=== PATIENT | female | born 1935 | race Caucasian/White ===

== ENCOUNTER 2023-10-02 14:03 | Inpatient (IN) | payer BC, MEDICAID ==
[~2023-10-02] VITALS: Ht 162.6 cm; Wt 60.5 kg
[~2023-10-02 14:03] MED LIST: ASPI-611 PO; COLC0.6T72 PO; NOR5T PO; OLME20TA69 PO; TRAM50TA2 PO
[2023-10-02 14:40] LABS: BASOPHILS # (AUTO) 0.1 X10'3 (0-0.2); BASOPHILS % (AUTO) 0.6 % (0-1); EOSINOPHILS # (AUTO) 0.1 X10'3 (0-0.9); EOSINOPHILS % (AUTO) 0.8 % (0-6); HEMATOCRIT 39.5 % (35.0-45.0); HEMOGLOBIN 13.2 g/dl (12.0-16.0); LYMPHOCYTES # (AUTO) 1.3 X10'3 (1.1-4.8); LYMPHOCYTES % (AUTO) 13.1 % (21-51); MEAN CORPUSCULAR HEMOGLOBIN 32.4 PG (27.0-31.0); MEAN CORPUSCULAR HGB CONC 33.3 g/dL (33.0-36.5); MEAN PLATELET VOLUME 9.2 FL (7.4-10.4); MONOCYTES # (AUTO) 0.7 X10'3 (0-0.9); MONOCYTES % (AUTO) 7.7 % (2-12); NEUTROPHILS # (AUTO) 7.5 X10'3 (1.8-7.7); NEUTROPHILS % (AUTO) 77.8 % (42-75); PLATELET COUNT 175 X10'3 (140-440); RED BLOOD COUNT 4.07 X10'6 (4.20-5.60); RED CELL DISTRIBUTION WIDTH 12.9 % (11.5-14.5); WHITE BLOOD COUNT 9.6 X10'3 (4.5-11.0)
[2023-10-02 14:50] LABS: APTT 29 SECONDS (22-32); PROTHROMBIN TIME 10.6 SECONDS (9.0-12.0)
[2023-10-02 15:38] LABS: ALANINE AMINOTRANSFERASE 19 U/L (12-78); ALBUMIN 3.4 G/DL (3.4-5.0); ALBUMIN/GLOBULIN RATIO 0.9 (1.1-1.5); ALKALINE PHOSPHATASE 81 IU/L (46-116); ANION GAP 10 (8-16); ASPARTATE AMINO TRANSFERASE 23 U/L (10-37); BILIRUBIN,TOTAL 0.7 MG/DL (0.1-1.0); BLOOD UREA NITROGEN 34 MG/DL (7-18); BUN/CREATININE RATIO 28.1 (10.0-20.0); CALCIUM 9.1 MG/DL (8.5-10.1); CHLORIDE 104 MMOL/L (99-107); CREATININE 1.21 MG/DL (0.40-0.90); GLUCOSE 120 MG/DL (70-104); SODIUM 141 MMOL/L (135-145); TOTAL CARBON DIOXIDE 26.9 MMOL/L (24-32); TOTAL PROTEIN 7.1 G/DL (6.4-8.2); eCRCL 28 ML/MIN; eGFR 42 ML/MIN
[2023-10-02 15:41] LABS: POTASSIUM 3.5 MMOL/L (3.5-5.1)
[2023-10-02] MEDS: ondansetron/PF 4mg/2ml inj IV ONE (16:24)
[2023-10-02] MEDS: morphine 4 MG/ML inj SYRINge IV ONE (16:24)
[2023-10-02] MEDS: morphine 2 MG/ML inj. syringe IV ONE ×2 (16:37→16:56)
[2023-10-02] MEDS ORDERED: potassium Cl 20 mEq SR tablet PO PRN ×2 (17:35)
[2023-10-02] MEDS ORDERED: magnesium Cl slow-release 64mg tablet PO PRN (17:35)
[2023-10-02] MEDS ORDERED: ondansetron/PF 4mg/2ml inj IV PRN (17:35)
[2023-10-02] MEDS ORDERED: magnesium hydroxide 30ml (MOM) UD suspension PO PRN (17:35)
[2023-10-02] MEDS ORDERED: morphine 2 MG/ML inj. syringe IV PRN (17:35)
[2023-10-02] MEDS ORDERED: acetaminophen 325mg tablet PO PRN (17:35)
[2023-10-02] MEDS ORDERED: mag hydrox/Alum hydrox/simeth 30ml oral suspension PO PRN (17:35)
[2023-10-02] MEDS ORDERED: magnesium 2GM in 50ml NS 50 ML IV PRN (17:35)
[2023-10-02] MEDS ORDERED: magnesium 4gm in 100ml NS 100 ML IV PRN (17:35)
[2023-10-02] MEDS: HYDROcodone/acetaminophen 10/325mg tab PO PRN (17:53)
[2023-10-02] MEDS: LORazepam 2 mg/ml vial IV ONE (18:05)
[2023-10-02] MEDS: HYDROmorphone 1 mg/ml syringe IV ONE (18:33)
[2023-10-02] MEDS: K and/or MAG REPLACEMENT MC SCH (20:00)
[2023-10-02] MEDS: normal saline 1000ml 1,000 ML IV SCH (20:45)
[2023-10-02] MEDS: amLODIPine 5mg tablet PO ONE (22:25)
[2023-10-02] MEDS: HYDROcodone/acetaminophen 5mg/325mg tablet PO PRN (22:26)
[2023-10-02] MEDS: HYDROmorphone 1 mg/ml syringe IV SCH (22:45)
[2023-10-03 00:15] VITALS: BP 200/80; PULSE 80; RESP 18; TEMP 98.1; O2SAT 95
[2023-10-03] MEDS: morphine 2 MG/ML inj. syringe IV PRN (00:30)
[2023-10-03] MEDS: heparin, porcine 5000 units/ml vial SQ SCH (02:24)
[2023-10-03 07:00] VITALS: BP 144/54; PULSE 65; RESP 16; TEMP 98.1; O2SAT 94
[2023-10-03 08:06] LABS: BASOPHILS # (AUTO) 0.1 X10'3 (0-0.2); BASOPHILS % (AUTO) 0.6 % (0-1); EOSINOPHILS # (AUTO) 0.2 X10'3 (0-0.9); EOSINOPHILS % (AUTO) 1.7 % (0-6); HEMATOCRIT 36.2 % (35.0-45.0); HEMOGLOBIN 12.1 g/dl (12.0-16.0); LYMPHOCYTES # (AUTO) 1.1 X10'3 (1.1-4.8); LYMPHOCYTES % (AUTO) 9.4 % (21-51); MEAN CORPUSCULAR HEMOGLOBIN 32.2 PG (27.0-31.0); MEAN CORPUSCULAR HGB CONC 33.3 g/dL (33.0-36.5); MEAN CORPUSCULAR VOLUME 96.6 FL (78-98); MEAN PLATELET VOLUME 9.5 FL (7.4-10.4); MONOCYTES % (AUTO) 8.1 % (2-12); NEUTROPHILS # (AUTO) 9.5 X10'3 (1.8-7.7); NEUTROPHILS % (AUTO) 80.2 % (42-75); PLATELET COUNT 168 X10'3 (140-440); RED BLOOD COUNT 3.75 X10'6 (4.20-5.60); RED CELL DISTRIBUTION WIDTH 12.5 % (11.5-14.5); WHITE BLOOD COUNT 11.8 X10'3 (4.5-11.0)
[2023-10-03 08:29] LABS: ANION GAP 8 (8-16); BLOOD UREA NITROGEN 26 MG/DL (7-18); BUN/CREATININE RATIO 23.2 (10.0-20.0); CALCIUM 8.8 MG/DL (8.5-10.1); CHLORIDE 106 MMOL/L (99-107); CREATININE 1.12 MG/DL (0.40-0.90); GLUCOSE 106 MG/DL (70-104); MAGNESIUM 1.8 MG/DL (1.5-2.4); POTASSIUM 3.4 MMOL/L (3.5-5.1); SODIUM 142 MMOL/L (135-145); TOTAL CARBON DIOXIDE 27.9 MMOL/L (24-32); eCRCL 30 ML/MIN; eGFR 46 ML/MIN
[2023-10-03 10:00] VITALS: BP 202/72; PULSE 68; RESP 26; TEMP 99.2; O2SAT 2
[2023-10-03] MEDS ORDERED: HYDROmorphone 1 mg/ml syringe IV PRN (10:20)
[2023-10-03] MEDS: dextrose 5%-normal saline 1,000 ML IV SCH (11:05)
[2023-10-03] MEDS: LORazepam 2 mg/ml vial IV ONE (11:17)
[2023-10-03] MEDS: potassium Cl 40MEQ/1/2NS 520ml 520 ML IV PRN (14:38)
[2023-10-03] MEDS: HYDROmorphone 1 mg/ml syringe IV PRN (16:30)
[2023-10-03 16:43] VITALS: BP 136/58; PULSE 76; O2SAT 96
[2023-10-03 18:00] VITALS: BP 144/54; PULSE 65; RESP 16; TEMP 98.1; O2SAT 94
[2023-10-03] MEDS: colchicine 0.6mg tablet PO SCH (19:33)
[2023-10-03] MEDS: losartan 50mg tablet PO SCH (21:05)
[2023-10-03 22:00] VITALS: BP 157/70; PULSE 68; RESP 15; TEMP 98.5; O2SAT 96
[2023-10-04] VITALS (20 sets, daily range): BP systolic 110–164; BP diastolic 36–83; PULSE 51–86; RESP 12–18; TEMP 97.9–99.7; O2SAT 92–99
[2023-10-04 06:55] LABS: BASOPHILS % (AUTO) 0.2 % (0-1); EOSINOPHILS % (AUTO) 0.4 % (0-6); HEMATOCRIT 30.8 % (35.0-45.0); HEMOGLOBIN 10.3 g/dl (12.0-16.0); LYMPHOCYTES # (AUTO) 0.9 X10'3 (1.1-4.8); MEAN CORPUSCULAR HEMOGLOBIN 32.4 PG (27.0-31.0); MEAN CORPUSCULAR HGB CONC 33.4 g/dL (33.0-36.5); MEAN PLATELET VOLUME 9.3 FL (7.4-10.4); NEUTROPHILS # (AUTO) 8.8 X10'3 (1.8-7.7); NEUTROPHILS % (AUTO) 82.4 % (42-75); PLATELET COUNT 126 X10'3 (140-440); RED BLOOD COUNT 3.17 X10'6 (4.20-5.60); RED CELL DISTRIBUTION WIDTH 12.4 % (11.5-14.5); WHITE BLOOD COUNT 10.7 X10'3 (4.5-11.0)
[2023-10-04 07:13] LABS: ALBUMIN 2.3 G/DL (3.4-5.0); ANION GAP 6 (8-16); BLOOD UREA NITROGEN 22 MG/DL (7-18); BUN/CREATININE RATIO 18.5 (10.0-20.0); CALCIUM 8.1 MG/DL (8.5-10.1); CHLORIDE 111 MMOL/L (99-107); CREATININE 1.19 MG/DL (0.40-0.90); GLUCOSE 204 MG/DL (70-104); MAGNESIUM 1.6 MG/DL (1.5-2.4); POTASSIUM 3.3 MMOL/L (3.5-5.1); SODIUM 143 MMOL/L (135-145); TOTAL CARBON DIOXIDE 26.5 MMOL/L (24-32); eCRCL 28 ML/MIN; eGFR 43 ML/MIN
[2023-10-04] MEDS: amLODIPine 5mg tablet PO SCH (07:52)
[2023-10-04] MEDS ORDERED: vancomycin 1,000mg inj ONE ×2 (12:02→16:04)
[2023-10-04] MEDS ORDERED: propofol inj 20 ML IV ONE (12:15)
[2023-10-04] MEDS ORDERED: dexamethasone sod phosphate 4mg/ml inj. ONE ×2 (12:15→15:21)
[2023-10-04] MEDS ORDERED: LIDOcaine 2% (20mg/ml) 5ml vial ONE (12:15)
[2023-10-04] MEDS ORDERED: ondansetron/PF 4mg/2ml inj ONE (12:15)
[2023-10-04] MEDS: morphine 2 MG/ML inj. syringe IV PRN (14:45)
[2023-10-04] MEDS ORDERED: sevoflurane 250ml liquid IH ONE (15:07)
[2023-10-04] MEDS ORDERED: fentaNYL/PF 50MCG/1 ML 2ML syringe ONE ×2 (15:08→15:47)
[2023-10-04] MEDS ORDERED: ceFAZolin 1000mg inj ONE (15:23)
[2023-10-04] MEDS ORDERED: tranexamic acid 100mg/ml inj. ONE (15:25)
[2023-10-04] MEDS ORDERED: fentaNYL/PF 50MCG/1 ML 2ML syringe IV PRN ×2 (15:35)
[2023-10-04] MEDS ORDERED: ondansetron/PF 4mg/2ml inj IV PRN (15:35)
[2023-10-04] MEDS ORDERED: labetalol 20mg/4ml (5mg/ml) syringe IV PRN (15:35)
[2023-10-04] MEDS ORDERED: morphine 4 MG/ML inj SYRINge IV PRN (15:35)
[2023-10-04] MEDS: ringers solution, lacted 1,000 ML IV SCH (15:35)
[2023-10-04] MEDS ORDERED: hydrALAZINE 20mg/ml inj. IV PRN (15:35)
[2023-10-04] MEDS ORDERED: morphine 2 MG/ML inj. syringe IV PRN (15:35)
[2023-10-04] MEDS: cefazolin 2gm/D5W 100mL 100 ML IV SCH (23:36)
[2023-10-05 02:00] VITALS: BP 139/63; PULSE 56; RESP 17; TEMP 97.9; O2SAT 99
[2023-10-05 06:00] VITALS: BP 136/50; PULSE 57; RESP 16; TEMP 98.2; O2SAT 98
[2023-10-05 06:49] LABS: BASOPHILS % (AUTO) 0.1 % (0-1); EOSINOPHILS % (AUTO) 0 % (0-6); HEMATOCRIT 28.9 % (35.0-45.0); HEMOGLOBIN 9.9 g/dl (12.0-16.0); LYMPHOCYTES # (AUTO) 0.9 X10'3 (1.1-4.8); LYMPHOCYTES % (AUTO) 7.8 % (21-51); MEAN CORPUSCULAR HGB CONC 34.2 g/dL (33.0-36.5); MEAN CORPUSCULAR VOLUME 96.7 FL (78-98); MEAN PLATELET VOLUME 9.6 FL (7.4-10.4); MONOCYTES # (AUTO) 1.1 X10'3 (0-0.9); MONOCYTES % (AUTO) 9.5 % (2-12); NEUTROPHILS # (AUTO) 9.2 X10'3 (1.8-7.7); NEUTROPHILS % (AUTO) 82.6 % (42-75); PLATELET COUNT 120 X10'3 (140-440); RED BLOOD COUNT 2.98 X10'6 (4.20-5.60); RED CELL DISTRIBUTION WIDTH 12.3 % (11.5-14.5); WHITE BLOOD COUNT 11.2 X10'3 (4.5-11.0)
[2023-10-05 07:00] LABS: ALBUMIN 2.2 G/DL (3.4-5.0); ANION GAP 9 (8-16); BLOOD UREA NITROGEN 26 MG/DL (7-18); BUN/CREATININE RATIO 20.8 (10.0-20.0); CALCIUM 8.5 MG/DL (8.5-10.1); CHLORIDE 111 MMOL/L (99-107); CREATININE 1.25 MG/DL (0.40-0.90); GLUCOSE 216 MG/DL (70-104); MAGNESIUM 1.6 MG/DL (1.5-2.4); POTASSIUM 3.9 MMOL/L (3.5-5.1); SODIUM 143 MMOL/L (135-145); TOTAL CARBON DIOXIDE 23.2 MMOL/L (24-32); eCRCL 27 ML/MIN; eGFR 40 ML/MIN
[2023-10-05] MEDS: aspirin 81mg, enteric-coated 1 TAB TABLET.DR PO SCH (07:48)
[2023-10-05 10:32] VITALS: BP 149/71; PULSE 63; RESP 18; TEMP 98.5; O2SAT 98
[2023-10-05] MEDS: calcium carbonate 500mg tablet PO SCH (17:52)
[2023-10-05 18:00] VITALS: BP 151/56; PULSE 62; RESP 17; TEMP 98.9; O2SAT 97
[2023-10-05 22:00] VITALS: BP 142/51; PULSE 60; RESP 22; TEMP 98.4; O2SAT 99
[2023-10-06 06:00] VITALS: BP 159/75; PULSE 59; RESP 20; TEMP 98; O2SAT 99
[2023-10-06] MEDS: cholecalciferol (vitamin D3) 1,000 unit (25mcg) tablet PO SCH (07:41)
[2023-10-06 07:45] LABS: BASOPHILS % (AUTO) 0.5 % (0-1); EOSINOPHILS # (AUTO) 0.1 X10'3 (0-0.9); EOSINOPHILS % (AUTO) 1.6 % (0-6); HEMATOCRIT 30.1 % (35.0-45.0); HEMOGLOBIN 10.1 g/dl (12.0-16.0); LYMPHOCYTES # (AUTO) 1.4 X10'3 (1.1-4.8); LYMPHOCYTES % (AUTO) 15.1 % (21-51); MEAN CORPUSCULAR HEMOGLOBIN 32.3 PG (27.0-31.0); MEAN CORPUSCULAR HGB CONC 33.4 g/dL (33.0-36.5); MEAN CORPUSCULAR VOLUME 96.6 FL (78-98); MEAN PLATELET VOLUME 10.2 FL (7.4-10.4); MONOCYTES # (AUTO) 1.2 X10'3 (0-0.9); MONOCYTES % (AUTO) 13.1 % (2-12); NEUTROPHILS # (AUTO) 6.4 X10'3 (1.8-7.7); NEUTROPHILS % (AUTO) 69.7 % (42-75); PLATELET COUNT 141 X10'3 (140-440); RED BLOOD COUNT 3.12 X10'6 (4.20-5.60); RED CELL DISTRIBUTION WIDTH 12.4 % (11.5-14.5); WHITE BLOOD COUNT 9.2 X10'3 (4.5-11.0)
[2023-10-06 07:49] LABS: ALBUMIN 2.1 G/DL (3.4-5.0); ANION GAP 8 (8-16); BLOOD UREA NITROGEN 31 MG/DL (7-18); BUN/CREATININE RATIO 27.7 (10.0-20.0); CALCIUM 8.2 MG/DL (8.5-10.1); CHLORIDE 106 MMOL/L (99-107); CREATININE 1.12 MG/DL (0.40-0.90); GLUCOSE 101 MG/DL (70-104); MAGNESIUM 1.4 MG/DL (1.5-2.4); POTASSIUM 3.6 MMOL/L (3.5-5.1); SODIUM 139 MMOL/L (135-145); TOTAL CARBON DIOXIDE 24.7 MMOL/L (24-32); eCRCL 30 ML/MIN; eGFR 46 ML/MIN
[2023-10-06 08:00] VITALS: RESP 16; O2SAT 99
[2023-10-06 10:00] VITALS: BP 134/55; PULSE 52; RESP 17; TEMP 98.3; O2SAT 98
[2023-10-06 12:25] VITALS: RESP 16
== END 2023-10-06 13:00 | DRG 522 ==
LOC: ER 14:03 → ED HOLD 17:35 → ORTHO 4S 23:54
PROVIDERS: ADMIT Family Medicine; ATTEND Family Medicine
PROC: 0SRS0JZ Replacement of Left Hip Joint, Femoral Surface with Synthetic Substitute, Open Approach (ICD-10-PCS; principal; 2023-10-04 15:07)
DX: S72.032A Displaced midcervical fracture of left femur, initial encounter for closed fracture (principal); I10 Essential (primary) hypertension; I48.0 Paroxysmal atrial fibrillation; M10.9 Gout, unspecified; G89.29 Other chronic pain; J44.9 Chronic obstructive pulmonary disease, unspecified; Z96.653 Presence of artificial knee joint, bilateral; W01.0XXA Fall on same level from slipping, tripping and stumbling without subsequent striking against object, initial encounter; Z82.3 Family history of stroke; Z82.49 Family history of ischemic heart disease and other diseases of the circulatory system; Z88.8 Allergy status to other drugs, medicaments and biological substances; Z88.1 Allergy status to other antibiotic agents; Z90.710 Acquired absence of both cervix and uterus; Z87.891 Personal history of nicotine dependence; Y93.89 Activity, other specified; Y92.89 Other specified places as the place of occurrence of the external cause; Y99.8 Other external cause status
CPT/HCPCS: 36415; 71045; 73502; 80048; 80053; 83735; 85025; 85610; 85730; 86885; 86900; 86901; 87081; 92508; 92616; 93005; 96374; 96375; 96376; 97162; 97530; 99285; A4314; A4615; A4618; A4620; A6446; A7000; C1776; G0378; J0690; J1100; J1170; J1644; J2060; J2270; J2405; J2704; J3010; J3370; J3480; J3490; J7030; J7042; J7070; J7120